=== PATIENT | female | born 1965 | race Caucasian/White ===

== ENCOUNTER → 2016-11-24 | Outpatient (CLI) | payer BC | LOC: MC.RAD 13:20 | DX: Z12.31 Encounter for screening mammogram for malignant neoplasm of breast (principal) ==

== ENCOUNTER → 2019-06-14 | Outpatient (CLI) | payer BC | LOC: MC.RAD 08:00 | DX: Z12.31 Encounter for screening mammogram for malignant neoplasm of breast (principal) ==

== ENCOUNTER 2019-08-02 13:02 | Day surgery (SDC) | payer BC ==
[~2019-08-02] VITALS: Ht 162.6 cm; Wt 61.1 kg
[2019-08-02 13:25] VITALS: BP 120/86; PULSE 55; TEMP 97.7
[2019-08-02 15:05] VITALS: BP 126/37; PULSE 70
[2019-08-02 15:20] VITALS: BP 114/64; PULSE 53
[2019-08-02 15:35] VITALS: BP 111/69; PULSE 65
== END 2019-08-02 15:55 | disposition home or self-care (01) ==
LOC: SDCO 13:02
DX: Z12.11 Encounter for screening for malignant neoplasm of colon (principal); D12.2 Benign neoplasm of ascending colon
CPT/HCPCS: J2250; J2405; J3010; J7030

== ENCOUNTER → 2020-06-25 | Outpatient (CLI) | payer BC | LOC: MC.RAD 06-15 08:30 | DX: Z12.31 Encounter for screening mammogram for malignant neoplasm of breast (principal) ==

== ENCOUNTER → 2021-08-26 | Outpatient (CLI) | payer BC | LOC: MC.RAD 08:15 | DX: Z12.31 Encounter for screening mammogram for malignant neoplasm of breast (principal) ==